=== PATIENT | female | born 1945 | race Caucasian/White ===

== ENCOUNTER 2016-07-14 19:27 | Emergency (ER) | payer OTHER ==
[2016-07-14 19:58] VITALS: BP 138/68; PULSE 75; RESP 16; TEMP 98.2; O2SAT 96
--- NOTE | 2016-07-14 20:16 | UCPHY ---
H & P Time Seen by Provider: 07/14/16 20:05 Patient Type: New HPI/ROS: Chief complaint: pain across the maxilla area as well as fullness in the right ear HPI: 70-year-old female who is illness started some 2 weeks ago. Though it is springtime she really does not have much in the way of a history of allergic rhinitis. However at some 2 weeks ago she started with a scant cough which has continued on to a mild degree. However most symptoms were that in the head with nasal congestion and blowing of her nose. There is some scratchy throat. Cough itself is really getting quite a bit better. However the last day or 2 she has developed a notable fullness in the right ear is a sore some fluid she can hear a pop. Furthermore when she bends over there is pain across the maxillary sinuses. She has had no fevers or rigors. No one else has been sick. No known exposure. ROS: Constitutional - no fevers or chills. Eyes - no discharge, or injection ENT - difficulty swallowing, sore throat. She does feel like her hearing is off little bit on the right Respiratory - No shortness of breath, phlegm, wheezing or pleuritic chest pain. The cough is dry Musculoskeletal - no joint or muscle pain. Integument - no rashes. Neurological - no headache, numbness, tingling, or paresthesias. No focal motor weakness. Immunological - no swelling or lymphadenopathy 10 point ROS otherwise negative Smoking Status: Unknown if ever smoked Physical Exam: Gen: Well developed, well nourished. Nontoxic. HEENT: Normocephalic. Ears: TMs are clear on the left however the right mother is light reflex there is air-fluid levels with a yellow material. Hearing slightly decreased on the right Eyes: PERRL. No conjunctival injection or pallor. no jaundice. Nose: No nasal discharge. Sinuses are nontender. Throat: Membranes are moist. Oropharynx is without erythema or exudate. Normal phonation. Lungs: Good air entry into both lungs. No rales rhonchi or wheezes. No air hunger. No respiratory distress. Skin: Good color, without pallor. There is no diaphoresis. Skin is warm and dry , without diaphoresis. Intact without rashes Constitutional: Initial Vital Signs Temperature (C) 36.8 C 07/14/16 19:35 Heart Rate 75 07/14/16 19:35 Respiratory Rate 16 07/14/16 19:35 Blood Pressure 138/68 H 07/14/16 19:35 O2 Sat (%) 96 07/14/16 19:35 O2 Delivery Mode Room Air Allergies/Adverse Reactions: DURACEF Allergy (Uncoded 07/14/16 19:44) Home Medications: Medication Instructions Recorded Amoxicillin 500 mg PO TID 10 Days 07/14/16 Medical Decision Making - Data Points Medications Given: Discontinued Medications Amoxicillin (Amoxil Chewable 250 Mg Prepack#4) 1 btl TAKEHOME EDNOW ONE PRN Reason: Protocol Stop: 07/14/16 20:18 Last Admin: 07/14/16 20:30 Dose: 1 btl Departure - Departure Disposition: Home, Routine, Self-Care Clinical Impression: Sinusitis Qualifiers: Sinusitis location: maxillary Chronicity: acute Recurrence: not specified as recurrent Qualified Code(s): J01.00 - Acute maxillary sinusitis, unspecified Condition: Good Instructions: Rhinosinusitis (ED) Additional Instructions: Use [id number] Afrin for the next 5 days Stop the Sudafed for the next 5 days PCP in 5 days if not markedly improved Referrals: Catherine Campbell MD [Primary Care Provider] - As per Instructions Prescriptions: Amoxicillin 500 mg PO TID 10 Days - PQRS PQRS Measurement: NA
[2016-07-14] MEDS ORDERED: AMOXICILLIN 250 MG PREPACK#4 BTL TAKEHOME ONE (20:17)
== END 2016-07-14 20:29 | disposition home or self-care (01) ==
LOC: CED 19:27
DX: J01.00 Acute maxillary sinusitis, unspecified (principal)
CPT/HCPCS: 99203-PO; G0463-PO